=== PATIENT | female | born 1950 | race Caucasian/White ===

== ENCOUNTER → 2016-12-09 | Outpatient (CLI) | payer OTHER ==
[2016-12-09 19:58] LABS: LYME DISEASE AB IGG NEG (NEG); LYME DISEASE AB IGM NEG (NEG)
== END | disposition home or self-care (01) ==
LOC: C.LAB 18:55
PROVIDERS: ATTEND Nurse Practitioner Family
DX: S80.269A Insect bite (nonvenomous), unspecified knee, initial encounter (principal); X58.XXXA Exposure to other specified factors, initial encounter

== ENCOUNTER → 2017-09-26 | Outpatient (CLI) | payer OTHER ==
--- NOTE | 2017-09-26 13:26 | DIAGNOSTIC IMAGING REPORT ---
CHEST 2 VIEWS ROUTINE CLINICAL HISTORY: COUGH COMPARISON STUDY: No previous studies for comparison. FINDINGS: The cardiac and mediastinal contours are normal. There is no evidence of focal pulmonary consolidation. There is no evidence of failure. No pleural effusions are visualized.[ IMPRESSION: No active disease in the chest. Electronically signed by: Tim Higuera M.D. 09/26/2017 1:25 PM Dictated Date/Time: 09/26/2017 1:25 PM
== END | disposition home or self-care (01) ==
LOC: C.RAD1850 13:09
PROVIDERS: ATTEND Family Medicine
DX: R05 Cough (principal)

== ENCOUNTER → 2017-10-09 | Outpatient (CLI) | payer OTHER ==
--- NOTE | 2017-10-09 08:18 | DIAGNOSTIC IMAGING REPORT ---
(BARIUM SWALLOW) ESOPHAGUS CLINICAL HISTORY: Dysphagia. COMPARISON STUDY: None. FLUOROSCOPY TIME: 2 minutes. FINDINGS: 24 fluoroscopic images were obtained. There was mild esophageal dysmotility. A small hiatal hernia was noted. Moderate reflux was noted. There was persistent holdup of a 13 mm barium tablet at the level of the hiatal hernia. A definite stricture was not identified on the remainder of the images at this level. IMPRESSION: 1. Small hiatal hernia with persistent holdup of a 13 mm barium tablet likely within the hernia. No associated stricture identified however follow-up endoscopy is recommended to exclude an occult stricture given hold up of the tablet at this level. 2. Moderate gastroesophageal reflux. 3. Mild esophageal dysmotility. Electronically signed by: Sae Duckworth M.D. 10/09/2017 8:17 AM Dictated Date/Time: 10/09/2017 8:14 AM
== END | disposition home or self-care (01) ==
LOC: C.RAD 07:26
PROVIDERS: ATTEND Family Medicine
DX: R13.10 Dysphagia, unspecified (principal); K44.9 Diaphragmatic hernia without obstruction or gangrene